=== PATIENT | male | born 1985 ===

== ENCOUNTER 2018-09-24 08:46 | Inpatient (IN) | payer OTHER ==
[2018-09-24] VITALS (14 sets, daily range): BP systolic 115–143; BP diastolic 62–80
[~2018-09-24] VITALS: Ht 165.1 cm; Wt 81.6 kg
[~2018-09-24 08:46] MED LIST: NORCO 5-325 TA1 EACH ORAL; TRUVADA 200 MG1 EAC1 ORAL; VITAMIN B-1100 MG ORAL; VITAMIN C500 M1 ORAL; VITAMIN D1000 UNI1 ORAL; WELLBUTRIN XL150 MG ORAL; ceFAZolin sod 2 GM in D5W 110 ML IVPB ONE
[2018-09-24] MEDS ORDERED: LR 1000ml 1,000 ML IVLG SCH (09:27)
[2018-09-24] MEDS ORDERED: Metoclopramide 10mg/2ml Inj IVP PRN (09:30)
[2018-09-24] MEDS ORDERED: Atropine Sulfate 0.4mg/ml inj IVP PRN (09:30)
[2018-09-24] MEDS ORDERED: LORazepam Inj 2mg/ml 1ml IV PRN (09:30)
[2018-09-24] MEDS ORDERED: fentaNYL 100 mcg/2 mL IV PRN (09:30)
[2018-09-24] MEDS ORDERED: Midazolam 2mg/2ml Inj IVP PRN (09:30)
[2018-09-24] MEDS ORDERED: Meperidine 50mg/ml Inj(FOR RIGORS ONLY) IVP PRN (09:30)
[2018-09-24] MEDS ORDERED: Acetaminophen (Non formulary) 100 ML IV ONE (09:30)
[2018-09-24] MEDS ORDERED: Ketorolac 30mg Inj IV PRN ×2 (09:30)
[2018-09-24] MEDS ORDERED: HYDROcodone/Acetamin 7.5/325 tab ORAL PRN ×3 (09:30→11:00)
[2018-09-24] MEDS ORDERED: Norco 5mg/325mg tab ORAL PRN (09:30)
[2018-09-24] MEDS ORDERED: DiphenhydrAMINE 50mg/ml Inj IVP PRN (09:30)
[2018-09-24] MEDS ORDERED: oxyCODONE HCL/Acetaminophen 5/325mg ORAL PRN (09:30)
--- NOTE | 2018-09-24 09:30 | Anethesia Preoperative Eval ---
Anesthesia Pre-op PMH/ROS General Date of Evaluation: Sep 24, 2018 Time of Evaluation: 10:59 Anesthesiologist: Dick ASA Score: ASA 3 Mallampati Score Class I : Soft palate, uvula, fauces, pillars visible Class II: Soft palate, uvula, fauces visible Class III: Soft palate, base of uvula visible Class IV: Only hard plate visible Mallampati Classification: Class II Surgeon: Danny Diagnosis: Back Pain Surgical Procedure: R L5-S1 Microdiscectomy, Hemilaminotomy Anesthesia History: none Family History: no anesthesia problems Allergies: Coded Allergies: LATEX (Verified Allergy, Severe, RASHES, 09/24/18) Medications: see eMAR Patient NPO?: Yes Past Medical History Cardiovascular: Reports: HTN Gastrointestinal/Genitourinary: Reports: GERD Neurologic/Psychiatric: Reports: depression/anxiety HEENT: Reports: other - Retinal Detachment Other: obesity PSxH Narrative: Eye Sx Anesthesia Pre-op Phys. Exam Physician Exam Vital Signs Date Time Temp Pulse Resp B/P (MAP) Pulse Ox O2 Delivery O2 Flow Rate FiO2 09/24/18 09:53 98.7 66 18 131/80 (97) 97 09/24/18 10:17 Room Air Constitutional: NAD Neurologic: CN 2-12 intact Cardiovascular: RRR Respiratory: CTA Gastrointestinal: S/NT/ND Airway Exam Mallampati Score: Class II MO: full ROM: full Teeth: intact Anesthesia Pre-op A/P Risk Assessment & Plan Assessment: ASA 3 Plan: GA, SED, GlideScope Go Status Change Before Surgery: No Pre-Antibiotics Dru Grams Ancef IV Given Within 1 Hr of Incision: Yes Time Given: 11:11 Floyd Jennings MD Sep 24, 2018 09:30
[2018-09-24] MEDS ORDERED: Dexamethasone 4mg/ml vial ONE (09:32)
[2018-09-24] MEDS ORDERED: Sodium Chloride 10ml vial INJ ONE (09:32)
[2018-09-24] MEDS ORDERED: Lidocaine 1% MPF 10mg/ml 5ml ONE (09:32)
[2018-09-24] MEDS ORDERED: Lidocaine 1% Plain 30 ml INJ ONE (09:38)
[2018-09-24] MEDS ORDERED: fentaNYL 100 mcg/2 mL IV ONE ×2 (09:38→12:34)
[2018-09-24] MEDS ORDERED: LATUDA40 MG PO (10:14)
[2018-09-24] MEDS ORDERED: LAMICTAL150 MG ORAL (10:14)
--- NOTE | 2018-09-24 10:49 | Pre-Procedure Note/Attestation ---
Pre-Procedure Note/Attestation Complete Prior to Procedure Planned Procedure: right Procedure Narrative: right sided lumbar 5S1 microdiscectomy Indications for Procedure Pre-Operative Diagnosis: L5S1 herniation Attestation I attest that I discussed the nature of the procedure; its benefits; risks and complications; and alternatives (and the risks and benefits of such alternatives ), prior to the procedure, with the patient (or the patient's legal premium representative). I attest that, if there was a reasonable possibility of needing a blood transfusion, the patient (or the patient's legal premium representative) was given the [facility] standardized written summary, pursuant to the [place] [employer] [place] Blood Safety Act ([place] Health and Safety Code # 1645, as amended). I attest that I re-evaluated the patient just prior to the surgery and that there has been no change in the patient's H&P, except as documented below: Bipin Delgado MD Sep 24, 2018 10:49
--- NOTE | 2018-09-24 10:50 | Brief Operative Note ---
Immediate Post Operative Note Operative Note Chief Complaint: back pain and radic Pre-op Diagnosis: L5S1 herniation Procedure: right sided lumbar 5S1 microdiscectomy Post-op Diagnosis: same as pre-op Findings: consistent w/pre-op dx studies Surgeon: Danny Student Truck Driver: Ailyn Anesthesiologist: Dick Anesthesia: general Specimen: none Complications: none Fluids: ivf Estimated Blood Loss: minimal Drains: none Implant(s) used?: No Bipin Delgado MD Sep 24, 2018 10:50
[2018-09-24] MEDS ORDERED: Zemuron 50mg/5ml Inj IV ONE (10:52)
[2018-09-24] MEDS ORDERED: Chloraseptic Spray 20mL Bottle ORAL PRN (11:00)
[2018-09-24] MEDS ORDERED: Propofol 1,000mg/ 100ml btl IV ONE (11:00)
[2018-09-24] MEDS ORDERED: traMADol 50mg tab ORAL PRN (11:00)
[2018-09-24] MEDS ORDERED: Naloxone 0.4mg/ml Inj IVP PRN (11:00)
[2018-09-24] MEDS ORDERED: LR 1000ml ONE (11:00)
[2018-09-24] MEDS ORDERED: Milk of Magnesia 30ml Ud ORAL PRN (11:00)
[2018-09-24] MEDS ORDERED: NS Irrig 1000ml ONE (11:00)
[2018-09-24] MEDS ORDERED: Sterile Water Irrig 1000ml IRRIG ONE (11:00)
[2018-09-24] MEDS ORDERED: EPINEPHrine 1mg/1ml Amp ONE ×2 (11:08→11:10)
[2018-09-24] MEDS ORDERED: Thrombin 5000 units TOPIC ONE ×2 (11:09→11:10)
[2018-09-24] MEDS ORDERED: Gelfoam Size TOPIC ONE (11:09)
[2018-09-24] MEDS ORDERED: Vancomycin 1gm inj IVPB ONE (11:09)
[2018-09-24] MEDS ORDERED: Bupivacaine 0.5% Inj 30 ml vial INJ ONE (11:10)
[2018-09-24] MEDS ORDERED: Bacitracin 50000 Units Vial ONE (11:10)
--- NOTE | 2018-09-24 11:39 | Immediate Post-Op Evaluation ---
Immediate Post-Op Evalulation Immediate Post-Op Evalulation Procedure: R L5-S1 Microdiscectomy, Hemilaminotomy Date of Evaluation: Sep 24, 2018 Time of Evaluation: 13:15 IV Fluids: 900 LR Blood Products: 0 Estimated Blood Loss: 25 Urinary Output: 0 Blood Pressure Systolic: 122 Blood Pressure Diastolic: 69 Pulse Rate: 66 Respiratory Rate: 16 O2 Sat by Pulse Oximetry: 100 Temperature (Fahrenheit): 97.9 Pain Score (1-10): 2 Nausea: No Vomiting: No Complications 0 Patient Status: awake, reacts, patent, extubated, none Hydration Status: adequate Dru Grams Ancef IV Given Within 1 Hr of Incision: Yes Time Given: 11:11 Floyd Jennings MD Sep 24, 2018 11:39
[2018-09-24] MEDS: Hydromorphone 0.5mg/0.5ml inj IVP PRN ×2 (13:16→13:45)
--- NOTE | 2018-09-24 14:14 | Diagnostic Imaging Report ---
INDICATION: Pain, intraoperative TECHNIQUE: Intraoperative imaging Fluoroscopy time: 9 seconds Total dose: 3.31 mGy Total number of images: One COMPARISON: None FINDINGS: Single intraoperative image demonstrates surgical tools projected posterior to the lumbosacral junction IMPRESSION: Intraoperative imaging, as described
[2018-09-24] MEDS: Dexamethasone 4mg/ml vial IVP SCH ×2 (16:37→22:03)
[2018-09-24] MEDS: NS w/KCl 20mEq 1,000 ML IV SCH (16:38)
[2018-09-24] MEDS: ceFAZolin sod 1 GM in D5W 55 ML IV SCH (18:54)
[2018-09-24] MEDS: Docusate 100mg cap ORAL SCH (18:54)
--- NOTE | 2018-09-24 20:00 | Cardiology Progress Note ---
Assessment/Plan Assessment/Plan doing well post op preop med are beign started ambualte when allow hopefully marylu ein am dvt ppx [id number] Objective Last 24 Hour Vital Signs Date Time Temp Pulse Resp B/P (MAP) Pulse Ox O2 Delivery O2 Flow Rate FiO2 09/24/18 17:10 98.6 09/24/18 15:46 98.6 70 20 125/71 (89) 99 09/24/18 15:16 98.7 73 20 127/73 (91) 99 09/24/18 15:00 Room Air 09/24/18 14:15 98.4 65 18 126/72 100 Nasal Cannula 3 09/24/18 14:15 98.4 09/24/18 14:00 69 15 119/63 100 Nasal Cannula 3 09/24/18 13:45 72 17 126/75 100 Nasal Cannula 3 09/24/18 13:45 98.3 09/24/18 13:35 67 15 129/69 100 Nasal Cannula 3 09/24/18 13:25 65 16 126/67 100 Nasal Cannula 3 09/24/18 13:16 76 17 134/69 100 Nasal Cannula 3 09/24/18 13:14 76 16 138/71 100 Simple Mask 6 09/24/18 13:09 81 16 115/62 100 Simple Mask 6 09/24/18 13:04 97.9 68 18 122/66 100 Simple Mask 6 09/24/18 13:03 66 16 100 09/24/18 10:17 Room Air 09/24/18 09:53 98.7 66 18 131/80 (97) 97 Brice Russell MD Sep 24, 2018 20:00
[2018-09-24] MEDS: Morphine Sulfate 4mg/ml Inj (IV/IM USE ONLY) IV PRN ×2 (20:18→23:46)
[2018-09-24] MEDS ORDERED: PROPRANOLOL HCL60 M1 PO (20:30)
[2018-09-24] MEDS ORDERED: Propranolol 10mg tab ORAL PRN (21:00)
[2018-09-24] MEDS ORDERED: LATUDA 40 MG ORAL SCH (22:00)
[2018-09-24] MEDS: Metoclopramide 10mg/2ml Inj IVP PRN (23:46)
[2018-09-25] VITALS: BP 120/65
[2018-09-25] MEDS: NS w/KCl 20mEq 1,000 ML IV SCH ×2 (02:22→03:07)
[2018-09-25] MEDS: ceFAZolin sod 1 GM in D5W 55 ML IV SCH ×2 (03:07→10:41)
[2018-09-25] MEDS: Dexamethasone 4mg/ml vial IVP SCH ×2 (03:07→08:29)
[2018-09-25] MEDS: Morphine Sulfate 4mg/ml Inj (IV/IM USE ONLY) IV PRN ×3 (03:08→12:25)
[2018-09-25 04:00] VITALS: BP 116/58
--- NOTE | 2018-09-25 04:30 | Consultation ---
DATE OF CONSULTATION: 09/24/2018 CARDIOLOGY CONSULTATION CONSULTING PHYSICIAN: Brice Russell M.D. REFERRING PHYSICIAN: Bipin Delgado M.D. REASON FOR REFERRAL: Postoperative medical care. HISTORY OF PRESENT ILLNESS: This is a 33-year-old gentleman, who has had back pain and radiculopathy prior to an accident with resultant L5-S1 disk herniation. He was seen and underwent right-sided lumbar L5-S1 microdiskectomy today and is being seen postoperatively. He really is doing relatively well. He does not really have any chest pain or shortness of breath. No palpitations. No dizziness or lightheadedness at this time. PAST MEDICAL HISTORY: Positive for history of high blood pressure, which resolved after he lost intentionally 60 pounds five years ago. He does have a history of bipolar disorder. He denies any other medical problems. He has had cervical disk replacement in October 2015. SOCIAL HISTORY: Denies smoking or drinking of alcoholic beverages. ALLERGIES: He is not allergic to any medications he says, although his chart indicates he is allergic to and latex gloves according to his chart. REVIEW OF SYSTEMS: GASTROINTESTINAL: He has had a little bit of nausea. No vomiting. No bloody stools or black stools. GENITOURINARY: Negative. PULMONARY: Denies. CONSTITUTIONAL: Denies. NEUROLOGIC: He does have numbness and tingling sensation in his feet still. PHYSICAL EXAMINATION: GENERAL: Shows to be a young gentleman, in no respiratory distress. NECK: Supple. No jugular venous distention is noted. LUNGS: Clear to auscultation. CARDIAC: S1 is normal. S2 is normal. Regular rate and rhythm. No heaves, thrills, or gallops noted. ABDOMEN: Soft and nontender. Positive bowel sounds. EXTREMITIES: Initially showed no clubbing, cyanosis, or edema. He is able to move his lower extremities. LABORATORY AND DIAGNOSTIC DATA: His labs, none postop. Preoperative labs include, EKG was noted, sinus rhythm. His preoperative laboratories were also reviewed with a sodium of 141, potassium 4.2, chloride 104, bicarbonate 30, BUN of 19, creatinine 0.94, sugar of 99, and calcium is 9.4. Liver function tests are normal. White count is 6.2, hemoglobin 15.9, and platelet count of 203,000. INR 1.2 and PTT of 29.6. ASSESSMENT AND PLAN: 1. Lumbar disk herniations, now status post microdiskectomy and right-sided L5-S1. 2. Bipolar disorder. The patient was resumed on his prior to admission medications, some of which are not available at this hospital. His family is obtaining those pills from home to be administered here. He does not appear to be in any kind of respiratory distress, he needs routine postoperative care. DVT prophylaxis with the help of pneumatic compression stockings and hopefully he will be able to ambulate. He seems to have tolerated clear liquids. Diet may be advanced by Dr. Delgado. Hopefully, he will be discharged home tomorrow if he is able to ambulate and eat and no issues with bowel movements. Brice Russell M.D. DR: CATY JOB#: [id number] CC:
--- NOTE | 2018-09-25 07:05 | 48 Hour Post Anesthesia Eval ---
Post Anesthesia Evaluation Procedure: R L5-S1 Microdiscectomy, Hemilaminotomy Date of Evaluation: Sep 25, 2018 Time of Evaluation: 06:10 Airway: patent Nausea: No Vomiting: No Pain Intensity: 2 Hydration Status: adequate Cardiopulmonary Status: at baseline Mental Status/LOC: patient returned to baseline Post-Anesthesia Complications: 0 Follow-up care needed: N/A - further care as per primary team Sadia Espinal MD Sep 25, 2018 07:05
[2018-09-25 08:00] VITALS: BP 124/65
[2018-09-25] MEDS: Docusate 100mg cap ORAL SCH (08:25)
[2018-09-25] MEDS: Metoclopramide 10mg/2ml Inj IVP PRN (08:29)
[2018-09-25] MEDS ORDERED: TRUVADA ORAL SCH (09:00)
[2018-09-25] MEDS ORDERED: valACYclovir HCL 500mg tab ORAL SCH (09:00)
[2018-09-25 11:57] VITALS: BP 125/68
--- NOTE | 2018-09-25 20:00 | Operative Note - Dictated ---
DATE OF OPERATION: 09/24/2018 SURGEON: Bipin Delgado M.D., Orthopaedic Spine Surgeon. [employer]SULTANT SURGEON: KARLA Goldsmith. ANESTHESIA: General endotracheal anesthesia. PREOPERATIVE DIAGNOSES: 1. Intractable back pain. 2. Intractable leg pain. 3. Worsening radiculopathy. 4. Weakness. 5. Herniated nucleus pulposus, L5-S1 herniation. 6. Neural foraminal stenosis, L5-S1. POSTOPERATIVE DIAGNOSES: 1. Intractable back pain. 2. Intractable leg pain. 3. Worsening radiculopathy. 4. Weakness. 5. Herniated nucleus pulposus, L5-S1 herniation. 6. Neural foraminal stenosis, L5-S1. PROCEDURES PERFORMED: 1. Right-sided L5-S1 microdiscectomy. 2. L5-S1 hemilaminotomy, foraminotomy, and medial facetectomy. 3. L5-S1 neural foraminotomy through a transpedicular intraforaminal approach. 4. Use of intraoperative microscope. 5. Supervision and interpretation of intraoperative fluoroscopy. 6. Supervision and interpretation of somatosensory-evoked potential and free-running EMG monitoring. ESTIMATED BLOOD LOSS: Less than 100 mL. COMPLICATIONS: None. INDICATIONS FOR THE PROCEDURE: Abdulaziz presents for intractable back pain and radiculopathy. The patient tried and failed a prolonged course of conservative management, including but not limited to chiropractic therapy, physical therapy, nonsteroidal anti-inflammatory drugs, medication, ice packs as well as epidural injection. Despite these therapies, the patient still developed recalcitrant pain and elected for definitive management in the form of right-sided L5-S1 microdiscectomy; L5-S1 hemilaminotomy, foraminotomy, and medial facetectomy; L5-S1 neural foraminotomy through a transpedicular intraforaminal approach. We had a long discussion with him regarding definitive surgical treatment options. The patient's MRI demonstrated herniated nucleus pulposus at L5-S1 herniation and neural foraminal stenosis at L5-S1, and as a result, I felt he would benefit from the discectomy as well as neural foraminotomy at this level. We had a long discussion with the patient regarding the risks, alternatives, and benefits of surgery. Our description of the risks included a discussion in person as well as a signed consent which detailed all pertinent risks and the procedure itself. Briefly, our discussion included but was not limited to infection, bleeding, pseudarthrosis, spinal cord injury, neurovascular injury, dural tear, CSF leak, neuropathy, paralysis, permanent weakness/drop foot, paresthesias blindness, palsy, and weakness. The patient understood there may be a need for revision surgery or additional procedures. Approach-related complications including dysphonia, dysphagia, blindness, permanent vocal cord and neural injury, hematoma, swallowing and breathing difficulty. Medical complications including liver, kidney, shock, and cardiopulmonary failure. Anesthesia complications including , swelling, damage to the musculature, larynx (voice injury or loss), esophagus (throat), trachea, blood vessels and muscles (muscular sprain), and lungs (pneumothorax) during this surgical procedure. Injury to deeper structures may be temporary or permanent. The patient understood these and elected to proceed. A written and verbal consent was given. We discussed the pros and cons of all the alternatives. We discussed the uncertainties associated with the decision. Afterwards I assessed the patient's understanding and explored their preferences. All questions were answered and no guarantees were given. Medical clearance was obtained prior to surgery. INTRAOPERATIVE FINDINGS: There was a large tear seen in the posterior longitudinal ligament, previous tear. There is a clear demarcation of herniated nucleus pulposus which was then carefully mobilized and resected out. It was causing significant impingement on the neural foramina and traversing nerve root at L5-S1. DESCRIPTION OF PROCEDURE: Under the benefit of general endotracheal anesthesia and with the assistance of the entire operative team, the patient was moved from the [place] junction onto the operative table in the prone position on a Chad frame. The head was secured and positioned appropriately. Bilateral arms were secured with Gel Pads and foam and all bony prominences were padded. The bilateral lower extremity SCD and MIRIAM hose were placed for DVT prophylaxis. A surgical timeout was called which corroborated our planned procedure. Preoperative antibiotics were administered within 30 minutes of the incision for prophylaxis. Decadron was given for preoperative steroids. Using lateral radiography, the operative levels were delineated. An incision was marked based on our interpretation of lateral radiography and afterwards the body was prepped and draped in the usual sterile manner. The family was notified that we were ready to commence surgery and were called in the waiting room hourly for updates. An incision was based on our lateral fluoroscopic image to center the incision at the L5-S1 interspace. The wound was prepped and draped in the usual sterile fashion. Using a scalpel, a midline incision was taken down through the skin and subcutaneous tissues until the overlying hemilamina of L5-S1 were visualized. Next, using meticulous hemostasis, hemilamotomies were dissected and retractors were placed. Using a Nunda dental, we confirmed placement at the L5-S1 interspace. We next turned our attention to our decompression. A standard hemilaminotomy, foraminotomy, and medial facetectomy was performed at each level in standard fashion using a Midas-Justin type AM8 drill bit, straight and angled curettage, and Kerrison 4 rongeurs until the lateral thecal sac margin and traversing nerve root was visualized. All remainders of the ligamentum flavum and lateral bony margins were resected in total with angled curettage and Kerrison 4 rongeurs until the lateral thecal sac margin and traversing nerve root was visualized and decompressed. We next turned our attention toward our L5-S1 microdiscectomy on the right side. A Gypsy 4 was used to gently mobilize the thecal sac medially and this was held retracted with a bayonetted nerve root retractor. It was at this point that we noted a large broad-based disc protrusion with encroachment dorsally on the thecal sac neural foraminal contents. A bayonet and nerve root retractor was then placed carefully to retract the thecal sac and a discectomy was performed using a combination of a long-handled 15 blade scalpel, downgoing and straight pituitaries, and downgoing curettage. Afterward, the disc space was irrigated twice with 20 mL of antibiotic-impregnated saline. All loose and free-floating disc fragments were carefully resected with a narrow pituitary. Having been satisfied with our decompression after our discectomy of all neural elements, we next turned our attention to our neural foraminoplasty/foraminotomy. This was performed through a transpedicular intraforaminal approach using an access probe followed by a neuro-check device, which confirmed ventral placement of our nerve root. Once we confirmed we were safe, we next turned our attention towards placement of our size 10 file under direct microscopic visualization and under lateral fluoroscopy. Using pre- and post-reciprocation imaging, we were able to visualize our direct decompression given the reciprocation allowed for re-creation of the neural foraminal arch at L5-S1. Afterwards, hemostasis was obtained with 60 mL of antibiotic-impregnated saline followed by FloSeal and Gelfoam. After sponge and needle count were found to be correct, next we turned our attention to closure. Closure consisted of 1-0 Vicryl in standard interrupted fashion. Zosyn was placed deep to the fascia and superficial to the fascia for antibiotic prophylaxis. Skin closure was performed with 2-0 Vicryl in interrupted fashion followed by a running Monocryl for the skin. Final dressings consisted of Dermabond for the superficial skin, Telfa, and Tegaderm. The patient tolerated the procedure well. The patient was extubated after the conclusion of surgery without incident. We discussed the findings of the surgery with the family upon completion of the case. At this point, the patient will be transferred to the spine floor for further observation. Bipin Delgado M.D. DR: Aroldo JOB#: [id number] CC:
--- NOTE | 2018-09-25 20:45 | Discharge Summary ---
DATE OF ADMISSION: 09/24/2018 DATE OF DISCHARGE: 09/25/2018 PROCEDURE PERFORMED DURING ADMISSION: L5-S1 microdiscectomy. REASON FOR ADMISSION: L5-S1 herniation. HOSPITAL COURSE/TREATMENT RENDERED: DISCHARGE PHYSICAL EXAMINATION: 1. The patient was ambulating with and without the assistance of physical therapy. 2. Prior to discharge home, incision was clean and dry with minimal swelling. 3. Follows commands. 4. Alert and oriented. 5. Pak discontinued, voiding. 6. Incentive spirometer at bedside. 7. IVF hep-locked. MOTOR: Demonstrates expected postoperative bulk and tone. Moves biceps, triceps, and deltoid musculature on command. Moves hip flexors, quadriceps, tibialis anterior, EHL, gastrocsoleus musculature on command as well. TREATMENT RENDERED: 1. Daily nursing care. 2. Physical therapy. 3. Occupational therapy. 4. Intravenous medications. 5. Oral medications. 6. Daily postoperative examinations by Spine Surgery team. CONDITION OF PATIENT ON DISCHARGE: The condition on discharge is stable for discharge to home. DISCHARGE INSTRUCTIONS: Our specific instructions relating to physical activity, medications, diet, and follow-up care are detailed in our standard operative folder and were given to this patient prior to surgery. We will however summarize these briefly as stated below. Regarding physical activity, we would like the patient to limit their flexion, extension, and rotation. We also require a limitation on their bending lifting and twisting. All medication has been called in prior to surgery to their pharmacy of choice. They can resume their regular diet once tolerated. We would like them to shower and limit soaking the wound in a tub/Jacuzzi/the ocean for a period of one month or until the incision is completely healed. We will have them follow up in our office in three weeks' time for their regularly scheduled appointment. They understand to call our office tomorrow to schedule the time for their three-week followup appointment. The patient will notify us should they experience any increase in the severity of pain, redness, swelling, or drainage from their incision. Bipin Delgado M.D. DR: Aroldo JOB#: [id number] CC:
[2018-09-25] MEDS ORDERED: Patient's Own Med - Truvada 200/300mg ORAL SCH (21:00)
[2018-09-25] MEDS ORDERED: Flonase Nasal Inhaler 16gm NASAL PRN (22:00)
== END 2018-09-25 14:50 | disposition home or self-care (01) | DRG 520 ==
LOC: SDSOVERFLO 08:46 → 3E 14:30
PROC: 01NB0ZZ Release Lumbar Nerve, Open Approach (ICD-10-PCS; principal; 2018-09-24 11:00)
PROC: 0SB40ZZ Excision of Lumbosacral Disc, Open Approach (ICD-10-PCS; principal; 2018-09-24 11:00)
DX: M51.17 Intervertebral disc disorders with radiculopathy, lumbosacral region (principal); M48.07 Spinal stenosis, lumbosacral region; I10 Essential (primary) hypertension; F31.9 Bipolar disorder, unspecified
CPT/HCPCS: 36415; 72020; 76001; 86850; 86900; 86901; 87081; J2405; J2765